=== PATIENT | male | born 1975 | race African-American/Black ===

== ENCOUNTER 2019-04-15 16:04 | Observation (INO) | payer MEDICARE ==
[~2019-04-15] VITALS: Ht 190.5 cm; Wt 108.9 kg
[~2019-04-15 16:04] MED LIST: ASPIRIN EC81 M1 PO; ASPIRIN325 MG PO; BENADRYL INJ50 MG/ML IV; BUPRENEX IV; CELEXA20 MG PO; HEPARIN SOD5000 U/ML IV; HUMALOG 30100 UNITS/ SC; IBUPROFEN200 MG PO; LANTUS INSULIN10 ML SC; LASIX20 MG PO; METOPROLOL TART50 MG PO; NEURONTIN 300300 MG PO; NORVASC5 MG PO; ONDANSETRON4 MG/2 M3 IV; PERCOCET 10/3251 TA1 PO; PLAVIX75 MG PO; PRINIVIL20 MG PO; PROCRIT/EP20000 UNIT SC; XANAX0.25 MG PO; XANAX1 MG PO; ZESTRIL40 MG PO; ZOCOR40 MG PO
[2019-04-15] MEDS ORDERED: COZAAR100 MG PO (16:16)
[2019-04-15] MEDS ORDERED: PROCARDIA XL30 MG PO (16:16)
[2019-04-15] MEDS ORDERED: HYDRALAZINE HC100 MG PO (16:17)
[2019-04-15] MEDS ORDERED: CATAPRES0.1 MG PO (16:18)
[2019-04-15] MEDS ORDERED: TOUJEO SOL300 UNIT/1 (16:20)
[2019-04-15 16:30] VITALS: BP 169/87
--- NOTE | 2019-04-15 17:52 | NUR ---
PATIENT ARRIVED TO UNIT AT THIS TIME VIA GERNERY FROM ED AND ADMITTED TO ROOM 2132. PATIENT IS ALERT/ORIENTED. ABLE TO TRANSFER SELF. AV FISTULA TO LEFT ARM. IV TO RIGHT AC. NO DISTRESS. DENIES CHEST PAIN. RESP EVEN AND UNLABORED.
[2019-04-15 18:32] VITALS: BP 179/88; BMI 28.8
[2019-04-15 20:00] VITALS: BP 172/87
--- NOTE | 2019-04-15 20:22 | NUR ---
RECIEVED UP IN BED WITH EYES OPEN AND TV ON. ALERT AND ORINTED X4. LEFT ARM RESERVED D/T AVF. 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 IV TO RIGHT AC SL.. DENIES ANY NEEDS AT THIS TIME.
[2019-04-16 00:07] VITALS: BP 187/98
[2019-04-16 04:00] VITALS: BP 201/99
--- NOTE | 2019-04-16 05:17 | NUR ---
B/P . PT STATES HE'S BEEN OUT OF HIS B/P MEDICATIONS. CALLED Tani PLEITEZ [facility] UNIT FEEDER WITH NEW ORDER FOR CLONIDINE 0.1. DIESEL TRUCK TECHNICIAN NOTIFIED AND AWAITING MEDICATION.
[2019-04-16 07:51] LABS: BASOPHILS 0.2 % (0-2); EOSINOPHILS 2.6 % (0-7); HEMATOCRIT 29.1 % (42.0-54.0); HEMOGLOBIN 9.6 g/dL (13.5-17.5); IMMATURE GRANULOCYTES 0.1 % (0-5); LYMPHOCYTES 12.2 % (15-50); MCV 90.9 fL (80.0-100.0); MEAN PLATELET VOLUME 11.1 fL (7.4-10.4); MONOCYTES 5.5 % (2-11); NEUTROPHILS 79.4 % (40-80); PLATELET COUNT 277 10x3/uL (130-400); RDW 15.7 % (11.5-14.5); WBC 8.4 10x3/uL (4.8-10.8)
[2019-04-16 08:05] LABS: CALCIUM 10.2 mg/dL (8.5-10.1); CARBON DIOXIDE 24.8 mmol/L (21.0-32.0); CREATININE - SERUM 15.4 mg/dL (0.6-1.3); MAGNESIUM - SERUM 2.3 mg/dL (1.8-2.4); PHOSPHOROUS 6.9 mg/dL (2.5-4.9); POTASSIUM - SERUM 4.8 mmol/L (3.5-5.1)
[2019-04-16 08:27] VITALS: BP 196/96
--- NOTE | 2019-04-16 08:33 | NUR ---
NO SCD'S PATIENT IS LLE AMPUTATION.
[2019-04-16 12:22] VITALS: BP 240/75
[2019-04-16 13:32] VITALS: Ht 190.5 cm; Wt 108.9 kg
--- NOTE | 2019-04-16 14:13 | NUR ---
I have reviewed this patient and I concur with the Shift Assessment completed by the Licensed Practical Nurse today this shift.
[2019-04-16 16:44] VITALS: BP 201/106
--- NOTE | 2019-04-16 20:25 | NUR ---
RECEIVED PATIENT BACK FROM DIALYSIS AND HE REQUESTED TO BE DISCHARGED. I EDUCATED HIM ON THE RISKS, BENEFITS AND ALTERNATIVES TO LEAVING AMA. PATIENT SIGNED FORMS. EDUCATED PATIENT ON MEDICATIONS. DR. EARL WAS PAGED AT 2014, RECEIVED CALLBACK AND INFORMED HIM OF PATIENTS DECISION. PATIENT DISCHARGED.
--- NOTE | 2019-04-18 15:09 | MORECARE ---
CASE MANAGEMENT DISCHARGE SUMMARY PATIENT: SURAJ RODRIGUEZ UNIT: [id number] ADM DATE: 04/15/19 AGE: 44 : 75 SEX: M ROOM/BED: D.2133 AUTHOR: IGLESIADOC PHYSICIAN: REFERRING PHYSICIAN: TRUDY FREEMAN MD DATE OF SERVICE: 04/18/19 Discharge Plan Patient Name: SURAJ RODRIGUEZ Facility: [facility]:[place] : 1975 Planned Disposition: Home Anticipated Discharge Date: 04/18/19 Discharge Date: 04/16/2019 Expected LOS: 3 Initial Reviewer: [email or web address] Initial Review Date: 04/15/2019 Generated: 04/18/19 4:08 pm Patient Name: SURAJ RODRIGUEZ Page [id number] All edits/amendments must be made on the electronic document DICTATION DATE: 04/18/19 1508 EXCELSIOR CUTTER: LEONORA 04/18/19 1508 RPT#: [id number] MT DATE:04/16/19 STATUS: DIS IN [facility] [address] [place] [address] END OF REPORT
--- NOTE | 2019-04-18 15:25 | MORECARE ---
CASE MANAGEMENT DISCHARGE SUMMARY PATIENT: SURAJ RODRIGUEZ UNIT: [id number] ADM DATE: 04/15/19 AGE: 44 : 75 SEX: M ROOM/BED: D.2133 AUTHOR: IGLESIA,DOC PHYSICIAN: REFERRING PHYSICIAN: TRUDY FREEMAN MD DATE OF SERVICE: 04/18/19 Discharge Plan Patient Name: SURAJ RODRIGUEZ Facility: [facility]:[place] : 1975 Planned Disposition: Home Anticipated Discharge Date: 04/18/19 Discharge Date: 04/16/2019 Expected LOS: 3 Initial Reviewer: [email or web address] Initial Review Date: 04/15/2019 Generated: 04/18/19 4:24 pm DCPIA - Discharge Planning Initial Assessment Updated by [email or web address]: Donavon Araya on 04/18/19 3:21 pm * Is the patient Alert and Oriented? Yes * How many steps to enter\exit or inside your home? RAMP * PCP JACINDA CUTLER * Pharmacy [facility] IN [place] * Preadmission Environment Home with Family * ADLs Independent * Equipment None * Other Equipment [facility] - MEDICAL EQUIPMENT PROVIDER PREFERENCE * List name and contact numbers for known caregivers / representatives who currently or will assist patient after discharge: ANNELISE CASTANEDA, [facility], * Verbal permission to speak to the caregivers and representatives has been obtained from the patient. Yes * Community resources currently utilized None * Please name any agencies selected above. NONE * Additional services required to return to the preadmission environment? No * Can the patient safely return to the preadmission environment? Yes * Has this patient been hospitalized within the prior 30 days at any hospital? No Last DP export: 04/18/19 2:09 p Patient Name: SURAJ RODRIGUEZ Page [id number] All edits/amendments must be made on the electronic document DICTATION DATE: 04/18/19 1524 GAS EXAMINER: LEONORA 04/18/19 1524 RPT#: [id number] DC DATE:04/16/19 STATUS: DIS IN [facility] [address] [place] [address] END OF REPORT
--- NOTE | 2019-04-18 15:50 | MORECARE ---
CASE MANAGEMENT DISCHARGE SUMMARY PATIENT: SURAJ RODRIGUEZ UNIT: [id number] ADM DATE: 04/15/19 AGE: 44 : 75 SEX: M ROOM/BED: D.2133 AUTHOR: ASIM PAREKH PHYSICIAN: REFERRING PHYSICIAN: TRUDY FREEMAN MD DATE OF SERVICE: 04/18/19 Discharge Plan Patient Name: SURAJ RODRIGUEZ Facility: [facility]:[place] : 1975 Planned Disposition: Left Against Medical Advice Anticipated Discharge Date: 04/16/19 Discharge Date: 04/16/2019 Expected LOS: 1 Initial Reviewer: [email or web address] Initial Review Date: 04/18/2019 Generated: 04/18/19 4:50 pm Last DP export: 04/18/19 2:25 p Patient Name: SURAJ RODRIGUEZ Page [id number] at 1550 All edits/amendments must be made on the electronic document DICTATION DATE: 04/18/19 1550 BOX ATTACHER: LEONORA 04/18/19 1550 RPT#: [id number] DC DATE:04/16/19 STATUS: DIS IN [facility] [address] [place] [address] END OF REPORT
== END 2019-04-16 20:23 | disposition left against medical advice (07) ==
LOC: D.ER 16:04 → D.M2 17:01 → OBSVTIME 17:01 → D.M2 17:01
PROVIDERS: ADMIT Internal Medicine; ATTEND Internal Medicine
DX: E11.22 Type 2 diabetes mellitus with diabetic chronic kidney disease (principal); I12.0 Hypertensive chronic kidney disease with stage 5 chronic kidney disease or end stage renal disease; N18.6 End stage renal disease; Z99.2 Dependence on renal dialysis; D63.1 Anemia in chronic kidney disease; J81.1 Chronic pulmonary edema; I25.10 Atherosclerotic heart disease of native coronary artery without angina pectoris

== ENCOUNTER 2019-09-30 00:37 | Inpatient (IN) | payer MEDICARE ==
[~2019-09-30] VITALS: Ht 190.5 cm; Wt 97.5 kg
[~2019-09-30 00:37] MED LIST changes: +CATAPRES0.1 MG PO; +COZAAR100 MG PO; +HYDRALAZINE HC100 MG PO; +PROCARDIA XL30 MG PO; +TOUJEO SOL300 UNIT/1
[2019-09-30] MEDS ORDERED: FAMOTIDINE10 MG PO (00:59)
[2019-09-30] MEDS ORDERED: SENSIPAR30 MG (01:00)
[2019-09-30] MEDS ORDERED: DOXYCYCLINE HY100 M2 PO (01:00)
[2019-09-30] MEDS ORDERED: AMBIEN5 MG PO (01:01)
[2019-09-30 01:23] LABS: BASOPHILS 0.5 % (0-2); EOSINOPHILS 3.6 % (0-7); HEMATOCRIT 30.7 % (42.0-54.0); HEMOGLOBIN 9.5 g/dL (13.5-17.5); IMMATURE GRANULOCYTES 0.2 % (0-5); LYMPHOCYTES 10.1 % (15-50); MCH 26.6 pg (26.0-34.0); MCHC 30.9 g/dL (31.0-37.0); MEAN PLATELET VOLUME 10.2 fL (7.4-10.4); MONOCYTES 4.8 % (2-11); NEUTROPHILS 80.8 % (40-80); RBC 3.57 10x6/uL (4.20-6.10); RDW 17.1 % (11.5-14.5); WBC 13.2 10x3/uL (4.8-10.8)
[2019-09-30 01:28] LABS: PLATELET COUNT 492 10x3/uL (130-400)
[2019-09-30 01:32] LABS: APTT 32.4 SECONDS (22.8-39.4); INR 1.29 (0.85-1.17); PROTIME 15.5 SECONDS (11.6-15.0)
[2019-09-30 01:34] LABS: CALC OSMOLALITY 282 mosm/kg (275-300); CALCIUM 9.4 mg/dL (8.5-10.1); CARBON DIOXIDE 25.6 mmol/L (21.0-32.0); CHLORIDE - SERUM 99 mmol/L (98-107); CREATININE - SERUM 8.8 mg/dL (0.6-1.3); GLUCOSE 136 mg/dL (74-106); POTASSIUM - SERUM 3.9 mmol/L (3.5-5.1); SODIUM 137 mmol/L (136-145); UREA NITROGEN 32 mg/dL (7-18); eGFR NON AFRICAN AMERICAN 7 mL/min (90-120)
[2019-09-30 01:56] LABS: ALKALINE PHOSPHATASE 106 U/L (46-116); ALT (SGPT) 34 U/L (10-68); BILIRUBIN - TOTAL 0.71 mg/dL (0.2-1.3); CKMB 1.9 U/L (0.0-3.6); CREATINE KINASE 170 UL (21-232)
[2019-09-30 01:57] LABS: TROPONIN-I 0.062 ng/mL (0.000-0.060)
--- NOTE | 2019-09-30 03:01 | NUR ---
PT ARRIVED TO FLOOR VIA STRETCHER. MOTHER AT BEDSIDE.
[2019-09-30] MEDS ORDERED: PROZAC10 MG PO (03:21)
[2019-09-30 05:20] VITALS: BP 159/74; BMI 26.9
--- NOTE | 2019-09-30 06:06 | NUR ---
PT STATED HE WAS HAVING A PANIC ATTACK AND THAT HE HAS THEM NIGHTLEY
--- NOTE | 2019-09-30 07:49 | NUR ---
PATIENT B/P ELEVATED. APRESOLINE GIVEN PRN ORDERED AT 0600. IT IS ORDERED Q4 HOURS. HE HAS A LOT OF ANXIETY, AND REPORTS THAT THE BLOOD DRAW IS WHAT IS MAKING HIS B/P GO UP. HE WAS VOMITING THIS MORNING AND TREATED WITH ZOFRAN. HE IS UNHAPPY AND WANTS TO ROLL AROUND THE FLOOR BY WHEEL CHAIR. I TOLD THE PATIENT AND HIS PAMILY THAT HE SHOULD STAY IN THE ROOM UNTIL THE MOBILE APPLICATION DEVELOPER ROUNDS. CALLED SHAR MARTINEZ AND SHE IS REVIEWING [facility] MEDICATIONS NOW.
[2019-09-30 07:53] VITALS: BP 203/99
--- NOTE | 2019-09-30 09:55 | NUR ---
PATIENT IS UP ROLLING AROUND IN HIS WHEEL CHAIR. HIS MOTHER IS PUSHING HIM AROUND. HE SAID THAT HE HAD ANXIETY. HE STATES THAT IS FEELS BETTER WHEN HE IS OUT OF THE ROOM.
[2019-09-30 11:28] VITALS: BP 183/87
[2019-09-30 15:32] VITALS: BP 199/102
--- NOTE | 2019-09-30 18:23 | NUR ---
HIGH B/P TREATED AGAIN WITH PRN B/P MEDS. CALLED SHAR MARTINEZ AND REPORTED PATIENT ANXIETY. SHE ACKNOWLEDGED AND ADDITIONAL MEDICATION ORDERED FOR ANXIETY. CALLED EVENING ANCHOR TO PULL IT BECAUSE IT IS AFTER PHARMACY CLOSED. PATIENT IS SITTING UP IN BED AND WAITING FOR THE ANTIBIOTICS TO FINISH, THEN HE SAYS THAT HE WANTS TO RIDE AROUND THE FLOOR IN HIS WHEEL CHAIR AGAIN. MOTHER AT BEDSIDE.
--- NOTE | 2019-09-30 19:00 | NUR ---
REPORT RECEIVED. PT UP AMBULATING IN GUY, RR EVEN AND UNLABORED. MOTHER PRESENT. NO S/SX OF DISTRESS OBSERVED AT THIS TIME. WILL CTM.
[2019-09-30 20:30] VITALS: BP 184/95
[2019-10-01 00:45] VITALS: BP 176/90
[2019-10-01 04:25] VITALS: BP 183/92
[2019-10-01 05:05] LABS: BASOPHILS 0.4 % (0-2); EOSINOPHILS 5.1 % (0-7); HEMATOCRIT 26.7 % (42.0-54.0); HEMOGLOBIN 8.3 g/dL (13.5-17.5); IMMATURE GRANULOCYTES 0.3 % (0-5); LYMPHOCYTES 11.4 % (15-50); MCH 26.5 pg (26.0-34.0); MCHC 31.1 g/dL (31.0-37.0); MCV 85.3 fL (80.0-100.0); MEAN PLATELET VOLUME 10.4 fL (7.4-10.4); NEUTROPHILS 77.8 % (40-80); PLATELET COUNT 421 10x3/uL (130-400); RBC 3.13 10x6/uL (4.20-6.10); RDW 17.5 % (11.5-14.5)
[2019-10-01 05:16] LABS: WBC 9.1 10x3/uL (4.8-10.8)
[2019-10-01 05:39] LABS: ANION GAP 13.8 mmol/L (8-16); CALCIUM 9.2 mg/dL (8.5-10.1); CARBON DIOXIDE 27.1 mmol/L (21.0-32.0); MAGNESIUM - SERUM 2.5 mg/dL (1.8-2.4); PHOSPHOROUS 5.3 mg/dL (2.5-4.9); POTASSIUM - SERUM 3.9 mmol/L (3.5-5.1)
[2019-10-01 06:03] LABS: CREATININE - SERUM 11.5 mg/dL (0.6-1.3); TROPONIN-I 0.066 ng/mL (0.000-0.060)
--- NOTE | 2019-10-01 09:59 | NUR ---
PT LEFT FOR DIALYSIS VIA WHEELCHAIR.
[2019-10-01 13:23] VITALS: Ht 190.5 cm; Wt 97.5 kg
--- NOTE | 2019-10-01 15:54 | NUR ---
PT ASSISTED TO SHOWER.
--- NOTE | 2019-10-01 17:46 | NUR ---
I have reviewed this patient and I concur with the Shift Assessment completed by the Licensed Practical Nurse today this shift.
--- NOTE | 2019-10-01 19:16 | NUR ---
AWAKE AND ALERT AND DENIES NEDS AT THIS TIME BED IS LOW AND LOCKED LCTA VISITOR IS WITH PT
[2019-10-01 20:30] VITALS: BP 185/91
[2019-10-02 00:25] VITALS: BP 154/70
[2019-10-02 04:27] VITALS: BP 159/77
--- NOTE | 2019-10-02 05:44 | NUR ---
IV INFILTRATED REMOVED CATH INTACT
--- NOTE | 2019-10-02 06:00 | NUR ---
ATTEMPTED X2 TO GET IV WITH NO SUCESS
--- NOTE | 2019-10-02 07:10 | NUR ---
REPORT RECEIVED AND PATIENT CARE ASSUMED. PATIENT LAHYING IN BED AWAKE, ALERT ORIENTED X 4. PATIENT IS STABLE AND VSS. PATIENT DENIES ANY NEEDES OR PAIN. WILL CONTINUE TO MONTIOR. AT BS. SR UP X 2 BED IN LOW POSITION AND CALL LIGHT IN REACH.
[2019-10-02 07:35] LABS: TROPONIN-I 0.069 ng/mL (0.000-0.060); VANCOMYCIN - RANDOM 18.4 ug/mL (10.0-20.0)
--- NOTE | 2019-10-02 09:45 | NUR ---
PATIENT IS STABLE AND VSS. PATIENT TO DIALYSIS VIA WC AND ACCOMPANIED BY HOSPITAL STAFF.
[2019-10-02 11:01] VITALS: BP 201/97
--- NOTE | 2019-10-02 12:30 | NUR ---
PATIENT RETURNED FROM DIALYSIS. PATIENT IS STABLE AND VSS. PIV INFILLTRATED. WILL RE-SITE.
--- NOTE | 2019-10-02 12:35 | NUR ---
I CALLED LUPIS CHANEL, ISOLATION WASHER NURSE FOR GERALDO MINER, RN PRIMARY NURSE FOR A PIV. STATES THAT SHE WILL PLACE ONE.
--- NOTE | 2019-10-02 19:14 | NUR ---
AWAKE AND ALERT UP IN WHEL CHAIR IV INFUSING NOW PT DENIES OTHER NEEDS BED IS LOW AND LOCKED
[2019-10-02 20:00] VITALS: BP 171/90
[2019-10-03 00:40] VITALS: BP 128/68
--- NOTE | 2019-10-03 02:36 | NUR ---
I have reviewed this patient and I concur with the Shift Assessment completed by the Licensed Practical Nurse today this shift.
[2019-10-03 05:43] VITALS: BP 165/79
[2019-10-03 06:43] LABS: TROPONIN-I 0.059 ng/mL (0.000-0.060); VANCOMYCIN - RANDOM 14.9 ug/mL (10.0-20.0)
[2019-10-03 07:54] VITALS: BP 182/100
--- NOTE | 2019-10-03 14:27 | NUR ---
PT ON RA AND SP02 WAS 87%. RESTING SP02 ON 4L/NC 95%
[2019-10-03 14:57] VITALS: BP 192/94
--- NOTE | 2019-10-03 16:25 | MORECARE ---
CASE MANAGEMENT DISCHARGE SUMMARY PATIENT: SURAJ RODRIGUEZ UNIT: [id number] ADM DATE: 09/30/19 AGE: 44 : 75 SEX: M ROOM/BED: D.2103 AUTHOR: ASIM PARKEH PHYSICIAN: REFERRING PHYSICIAN: MIROSLAVA MONTANA DO DATE OF SERVICE: 10/03/19 Discharge Plan Patient Name: SURAJ RODRIGUEZ Facility: [facility]:[place] : 1975 Planned Disposition: Home Anticipated Discharge Date: 10/04/19 Discharge Date: Expected LOS: 4 Initial Reviewer: [email or web address] Initial Review Date: 10/03/2019 Generated: 10/03/19 5:24 pm DCPIA - Discharge Planning Initial Assessment Updated by [email or web address]: Donavon Araya on 10/03/19 4:23 pm * Is the patient Alert and Oriented? Yes * How many steps to enter\exit or inside your home? NONE * PCP DR FAGAN IN [place] * Pharmacy [facility] IN [place] * Preadmission Environment Home with Family * ADLs Independent * Equipment Wheelchair * Other Equipment LEFT BELOW KNEE PROSTESIS * List name and contact numbers for known caregivers / representatives who currently or will assist patient after discharge: BREEZY STRAUSS, MOTHER, * Verbal permission to speak to the caregivers and representatives has been obtained from the patient. N/A * Community resources currently utilized Other * Please name any agencies selected above. [facility], [place], MWF, 1030, DRIVES SELF * Additional services required to return to the preadmission environment? Yes * Can the patient safely return to the preadmission environment? Yes * Has this patient been hospitalized within the prior 30 days at any hospital? No Patient Name: SURAJ RODRIGUEZ Page [id number] at 1625 All edits/amendments must be made on the electronic document DICTATION DATE: 10/03/191623 MONUMENT STONECUTTER: LEONORA 10/03/191623 RPT#: [id number] DC DATE: STATUS: ADM IN [facility] [address] [place] [address] END OF REPORT
[2019-10-03 16:26] LABS: APPEARANCE CLEAR (CLEAR); BILIRUBIN NEGATIVE (NEGATIVE); COLOR YELLOW (YELLOW); GLUCOSE NEGATIVE (NEGATIVE); KETONE NEGATIVE (NEGATIVE); NITRITE NEGATIVE (NEGATIVE); PROTEIN 1+ mg/dL (NEGATIVE); UROBILINOGEN NORMAL (NORMAL)
--- NOTE | 2019-10-03 16:48 | MORECARE ---
CASE MANAGEMENT DISCHARGE SUMMARY PATIENT: SURAJ RODRIGUEZ UNIT: [id number] ADM DATE: 09/30/19 AGE: 44 : 75 SEX: M ROOM/BED: D.4313 AUTHOR: IGLESIA,DOC PHYSICIAN: REFERRING PHYSICIAN: MIROSLAVA MONTANA DO DATE OF SERVICE: 10/03/19 Discharge Plan Patient Name: SURAJ RODRIGUEZ Facility: [facility]:[place] : 1975 Planned Disposition: Home Anticipated Discharge Date: 10/04/19 Discharge Date: Expected LOS: 4 Initial Reviewer: [email or web address] Initial Review Date: 10/03/2019 Generated: 10/03/19 5:47 pm Comments DCP- Discharge Planning Updated by [id number]: Donavon Araya on 10/03/19 3:[address] Patient Name: SURAJ RODRIGUEZ Admission Status: ER Accout number: [id number] Admission Date: 09-30-2019 : 1975 Admission Diagnosis: Attending: MONICA Current LOS: 3 Anticipated DC Date: 10-04-2019 Planned Disposition: Home Primary Insurance: MEDICARE A & B Discharge Planning Comments: CM RECEIVED OXYGEN TESTING ORDER AND OXYGEN TESTING OF 87% ON ROOM AIR. CM MET WITH PT IN ROOM TO DISCUSS DISCHARGE PLANNING AND NEEDS. PT REPORTS LIVING AT HOME INDEPENDENTLY WITH HIS MOTHER. PT HAS WHEELCHAIR AND LEFT BELOW KNEE PROSTESIS; PT'S PREFERRED MEDICAL EQUIPMENT PROVIDER IS [employer] [facility]. PT HAS NO OUTSIDE SERVICES ASSISTING IN THE HOME. PT DRIVES SELF TO DIALYSIS IN [facility] AT 1030AM. CM DISCUSSED AVAILABILITY OF HOME HEALTH, REHAB SERVICES AND MEDICAL EQUIPMENT. PT DENIES DISCHARGE NEEDS OTHER THAN OXYGEN. CM REVIEWED CHART, EXPLAINED TO PT HE DOES NOT HAVE QUALIFYING DIAGNOSIS FOR OXYGEN AND MAY HAVE TO PAY PRIVATELY. PT REPORTS UNDERSTANDING. CHOICE SIGNED FOR [employer]. PT REPORTS FAMILY WILL PICK HIM UP FOR DISCHARGE HOME. IMPORTANT MESSAGE FROM MEDICARE PROVIDED AND EXPLAINED. CM CALLED [employer], , SPOKE TO OLIVERIO WHO REPORTS THEY DO NOT DO PRIVATE PAY OXYGEN. OLIVERIO SUGGESTED CM CALL [facility]. CM CALLED [facility], , SPOKE TO DAVID WHO INFORMED CM THAT THEY DO PRIVATE PAY OXYGEN BUT MAY BE ABLE TO GET INSURANCE APPROVAL AND WANTS TO REVIEW CHART. CM SPOKE TO PT IN ROOM WHO CONSENTED TO REFERRAL TO [facility]. CM FAXED REFERRAL TO DAVID AT [phone]. CM WAITING [facility] TO COMPLETE REVIEW AND IF POSSIBLE, BILL MEDICARE FOR OXYGEN AND IF NOT, WORK OUT PRIVATE PAY ARRANGEMENT FOR HOME AND PORTABLE OXGYEN WITH PT. Greaser Operator: Donavon Araya DCPIA - Discharge Planning Initial Assessment Updated by [email or web address]: Donavon Araya on 10/03/19 4:23 pm * Is the patient Alert and Oriented? Yes * How many steps to enter\exit or inside your home? NONE * PCP DR FAGAN IN [place] * Pharmacy [facility] IN [place] * Preadmission Environment Home with Family * ADLs Independent * Equipment Wheelchair * Other Equipment LEFT BELOW KNEE PROSTESIS * List name and contact numbers for known caregivers / representatives who currently or will assist patient after discharge: BREEZY STRAUSS, MOTHER, * Verbal permission to speak to the caregivers and representatives has been obtained from the patient. N/A * Community resources currently utilized Other * Please name any agencies selected above. OUTPATIENT DIALYSIS, [place], MWF, 1030, DRIVES SELF * Additional services required to return to the preadmission environment? Yes * Can the patient safely return to the preadmission environment? Yes * Has this patient been hospitalized within the prior 30 days at any hospital? No External Providers External Provider: [facility] Next Contact Date: 10/03/2019 Service Request Date: Service Type: Resolution: Reviewer: Comments: Last DP export: 10/03/19 3:25 pm Patient Name: SURAJ RODRIGUEZ Page [id number] at 1648 All edits/amendments must be made on the electronic document DICTATION DATE: 10/03/191646 SENIOR PROGRAM PLANNER: LEONORA 10/03/191646 RPT#: [id number] DC DATE: STATUS: ADM IN [facility] [address] [place] [address] END OF REPORT
[2019-10-03 20:00] VITALS: BP 171/80
--- NOTE | 2019-10-03 22:00 | NUR ---
REPORT RECIEVED AND ROUNDING COMPLETE. PATIENT SITTING IN BED, PATIENT ASKED ABOUT A SANDWICH, ANNELISE, MINERAL TECHNOLOGIST BROUGHT IN A SANDWICH. PATIENT SHOWS NO S/SX OF DISTRESS AT THIS TIME. CALL LIGHT WITH IN REACH AND BED IN LOWEST LOCKED POSITION. PAITENT STATES HE HAS NO OTHER NEEDS AT THIS TIME.
[2019-10-03 23:30] VITALS: BP 195/94
[2019-10-04 04:00] VITALS: BP 190/91
--- NOTE | 2019-10-04 07:16 | NUR ---
REPORT RECEIVED FROM LOUVER MORTISER OPERATOR AND PATIENT SHANTELL ASSUMED. PATIENT LAYING IN BED ON BACK WITH EYES CLOSED AND BREATHING EVENLY. WILL CONTINUE WITH PLAN OF CARE. SR UP X 2 BED IN LOW POSITION AND CALL LIGHT IN REACH.
[2019-10-04 07:43] LABS: TROPONIN-I 0.048 ng/mL (0.000-0.060); VANCOMYCIN - RANDOM 16.1 ug/mL (10.0-20.0)
[2019-10-04] MEDS ORDERED: ROBITUSSIN AC (WITH PO (08:11)
[2019-10-04] MEDS ORDERED: AMOX TR-K CLV 21 TAB PO (08:20)
[2019-10-04 08:27] VITALS: BP 185/78
--- NOTE | 2019-10-04 08:40 | NUR ---
PATIENT REPORTS NO FLU SHOT UPON ADMIT, REFUSED ONE FOR DISCHARGE.
--- NOTE | 2019-10-04 09:43 | NUR ---
Nutrition Follow-up: Pt reports appetite improving. Ate ~75% of breakfast this AM. Diet: Renal ADA Wt: 215# (10/01) Last BM: [employer] [facility] Labs reviewed Meds noted: Renagel -Continue current diet as tolerated. -Need new wt; noted daily wts ordered. -RD following.
[2019-10-04 11:11] VITALS: BP 177/91
--- NOTE | 2019-10-04 11:46 | NUR ---
PATIENT IS STABLE AND VSS. ORDERS RECEIVED FOR DC. WRITTEN AND VERBAL INSTRUCTIONS GIVEN. PATIENT VERBAIZED UNDERSTANDING AND SIGNED DC ORDERS. PATIENT IS NOW AWAINTING TRANSPORTATION FROM [place].
--- NOTE | 2019-10-04 12:13 | MORECARE ---
CASE MANAGEMENT DISCHARGE SUMMARY PATIENT: SURAJ RODRIGUEZ UNIT: [id number] ADM DATE: 09/30/19 AGE: 44 : 75 SEX: M ROOM/BED: D.2103 AUTHOR: IGLESIA,DOC PHYSICIAN: REFERRING PHYSICIAN: MIROSLAVA MONTANA DO DATE OF SERVICE: 10/04/19 Discharge Plan Patient Name: SURAJ RODRIGUEZ Facility: [facility]:[place] : 1975 Planned Disposition: Home Anticipated Discharge Date: 10/04/19 Discharge Date: Expected LOS: 4 Initial Reviewer: [email or web address] Initial Review Date: 10/03/2019 Generated: 10/04/19 1:13 pm Comments DCP- Discharge Planning Updated by [email or web address]: Donavon Araya on 10/04/19 11:[address] Patient Name: SURAJ RODRIGUEZ Encounter No: [id number] : 1975 Primary Insurance: MEDICARE A & B Anticipated DC Date: 10-04-2019 Planned Disposition: Home DCP follow-up note: CM CALLED [facility], , SPOKE TO DAVID WHO INFORMED CM THAT SHE RECEIVED INSURANCE APPROVAL AND OXYGEN IS ON THE WAY TO PT'S ROOM. CM SPOKE TO PT IN ROOM WHO IS IN AGREEMENT WITH DISCHARGE HOME TODAY, FAMILY WILL ASSURANCE SERVICES MANAGER HEALTH CARE. VERTICAL MILL OPERATOR NURSE NOTIFIED. [facility]IVER[facility] PORTABLE OXYGEN TO PT'S ROOM AND WILL ARRANGE HOME DELIVERY OF OXGYEN WITH PT AFTER HE ARRIVES HOME TODAY. Media/Instructional Designer: Donavon Araya DCP- Discharge Planning Updated by [email or web address]: Donavon Araya on 10/03/19 3:[address] Patient Name: SURAJ RODRIGUEZ Admission Status: ER Accout number: [id number] Admission Date: 09-30-2019 : 1975 Admission Diagnosis: Attending: MONICA Current LOS: 3 Anticipated DC Date: 10-04-2019 Planned Disposition: Home Primary Insurance: MEDICARE A & B Discharge Planning Comments: CM RECEIVED OXYGEN TESTING ORDER AND OXYGEN TESTING OF 87% ON ROOM AIR. CM MET WITH PT IN ROOM TO DISCUSS DISCHARGE PLANNING AND NEEDS. PT REPORTS LIVING AT HOME INDEPENDENTLY WITH HIS MOTHER. PT HAS WHEELCHAIR AND LEFT BELOW KNEE PROSTESIS; PT'S PREFERRED MEDICAL EQUIPMENT PROVIDER IS [employer]. PT HAS NO OUTSIDE SERVICES ASSISTING IN THE HOME. PT DRIVES SELF TO DIALYSIS IN [facility] AT 1030AM. CM DISCUSSED AVAILABILITY OF HOME HEALTH, REHAB SERVICES AND MEDICAL EQUIPMENT. PT DENIES DISCHARGE NEEDS OTHER THAN OXYGEN. CM REVIEWED CHART, EXPLAINED TO PT HE DOES NOT HAVE QUALIFYING DIAGNOSIS FOR OXYGEN AND MAY HAVE TO PAY PRIVATELY. PT REPORTS UNDERSTANDING. CHOICE SIGNED FOR [employer]. PT REPORTS FAMILY WILL PICK HIM UP FOR DISCHARGE HOME. IMPORTANT MESSAGE FROM MEDICARE PROVIDED AND EXPLAINED. CM CALLED [employer], , SPOKE TO OLIVERIO WHO REPORTS THEY DO NOT DO PRIVATE PAY OXYGEN. OLIVERIO SUGGESTED CM CALL [facility]. CM CALLED [facility], , SPOKE TO DAVID WHO INFORMED CM THAT THEY DO PRIVATE PAY OXYGEN BUT MAY BE ABLE TO GET INSURANCE APPROVAL AND WANTS TO REVIEW CHART. CM SPOKE TO PT IN ROOM WHO CONSENTED TO REFERRAL TO [facility]. CM FAXED REFERRAL TO DAVID AT [phone]. CM WAITING [facility] TO COMPLETE REVIEW AND IF POSSIBLE, BILL MEDICARE FOR OXYGEN AND IF NOT, WORK OUT PRIVATE PAY ARRANGEMENT FOR HOME AND PORTABLE OXGYEN WITH PT. Media/Instructional Designer: Donavon Araya DCPIA - Discharge Planning Initial Assessment Updated by [email or web address]: Donavon Araya on 10/03/19 4:23 pm * Is the patient Alert and Oriented? Yes * How many steps to enter\exit or inside your home? NONE * PCP DR FAGAN IN [place] * Pharmacy [facility] IN [place] * Preadmission Environment Home with Family * ADLs Independent * Equipment Wheelchair * Other Equipment LEFT BELOW KNEE PROSTESIS * List name and contact numbers for known caregivers / representatives who currently or will assist patient after discharge: BREEZY STRAUSS, MOTHER, * Verbal permission to speak to the caregivers and representatives has been obtained from the patient. N/A * Community resources currently utilized Other * Please name any agencies selected above. OUTPATIENT DIALYSIS, [facility], [facility], 1030, DRIVES SELF * Additional services required to return to the preadmission environment? Yes * Can the patient safely return to the preadmission environment? Yes * Has this patient been hospitalized within the prior 30 days at any hospital? No Coverage Notice Reviewer: [email or web address] Suhas Araya Notice Issued Date-Time: 10/03/2019 15:00 Notice Type: Patient Choice Letter Notice Delivered To: Patient Relationship to Patient: Security Compliance Engineer Name: Delivery Method: HAND - Hand Delivered Chandrika Days: Prior Verbal Notification: Recipient Understood Notice: Yes Recipient Signature: Yes Med Rec Note Co-signed by Attending: Coverage Notice Comment: [employer] Reviewer: [email or web address] Suhas Araya Notice Issued Date-Time: 10/03/2019 15:00 Notice Type: IM Discharge Notice Notice Delivered To: Patient Relationship to Patient: Security Compliance Engineer Name: Delivery Method: HAND - Hand Delivered Chandrika Days: Prior Verbal Notification: Recipient Understood Notice: Yes Recipient Signature: Yes Med Rec Note Co-signed by Attending: Coverage Notice Comment: Last DP export: 10/03/19 3:48 pm Patient Name: SURAJ RODRIGUEZ Page [id number] at 1213 All edits/amendments must be made on the electronic document DICTATION DATE: 10/04/19 1213 CALL CENTER OPERATOR: LEONORA 10/04/19 1213 RPT#: [id number] DC DATE: STATUS: ADM IN [facility] [address] [place] [address] END OF REPORT
--- NOTE | 2019-10-04 13:32 | NUR ---
PATIENT IS STABLE AND VSS. IV DECD WITHOUT DIFFICULTY WITH ENTIRE CATHETER INTACT. PRESSURE DRSG APPLIED. PATIENT TO FRONT DOOR VIA WC ACCOMPANIED BY FAMILY AND HOSPITAL STAFF TO PRIVATE VEHICLE DRIVEN BY FAMILY MEMBER. PATIENT IS DC HOME FOR SELF CARE.
== END 2019-10-04 13:34 | disposition home or self-care (01) | DRG 193 ==
LOC: D.ER 00:37 → D.M2 02:27
PROVIDERS: Family Medicine; ADMIT Internal Medicine; ATTEND Internal Medicine
PROC: 5A1D70Z Performance of Urinary Filtration, Intermittent, Less than 6 Hours Per Day (ICD-10-PCS; principal; 2019-09-30)
PROC: 5A1D70Z Performance of Urinary Filtration, Intermittent, Less than 6 Hours Per Day (ICD-10-PCS; 2019-09-30)
DX: J18.9 Pneumonia, unspecified organism (principal); N18.6 End stage renal disease; J96.01 Acute respiratory failure with hypoxia; I12.0 Hypertensive chronic kidney disease with stage 5 chronic kidney disease or end stage renal disease; E11.22 Type 2 diabetes mellitus with diabetic chronic kidney disease; Z99.2 Dependence on renal dialysis; D63.1 Anemia in chronic kidney disease

== ENCOUNTER 2019-10-07 15:35 | Inpatient (IN) | payer MEDICARE ==
[~2019-10-07] VITALS: Ht 190.5 cm; Wt 97.5 kg
[~2019-10-07 15:35] MED LIST changes: +AMBIEN5 MG PO; +AMOX TR-K CLV 21 TAB PO; +DOXYCYCLINE HY100 M2 PO; +FAMOTIDINE10 MG PO; +PROZAC10 MG PO; +ROBITUSSIN AC (WITH PO; +SENSIPAR30 MG
[2019-10-07 15:52] VITALS: BP 257/135
[2019-10-07 16:00] VITALS: BP 159/56; BP 213/114
[2019-10-07 16:30] LABS: BASOPHILS 0.2 % (0-2); EOSINOPHILS 5.3 % (0-7); HEMATOCRIT 26.5 % (42.0-54.0); HEMOGLOBIN 8.5 g/dL (13.5-17.5); IMMATURE GRANULOCYTES 0.1 % (0-5); MCH 27.3 pg (26.0-34.0); MCHC 32.1 g/dL (31.0-37.0); MCV 85.2 fL (80.0-100.0); MEAN PLATELET VOLUME 10.3 fL (7.4-10.4); MONOCYTES 5.3 % (2-11); NEUTROPHILS 77.1 % (40-80); PLATELET COUNT 418 10x3/uL (130-400); RBC 3.11 10x6/uL (4.20-6.10); RDW 18.3 % (11.5-14.5); WBC 10.1 10x3/uL (4.8-10.8)
[2019-10-07 16:44] LABS: CALC OSMOLALITY 287 mosm/kg (275-300); CALCIUM 9.6 mg/dL (8.5-10.1); CARBON DIOXIDE 29.4 mmol/L (21.0-32.0); CHLORIDE - SERUM 100 mmol/L (98-107); CREATININE - SERUM 12.1 mg/dL (0.6-1.3); POTASSIUM - SERUM 4.2 mmol/L (3.5-5.1); SODIUM 138 mmol/L (136-145); UREA NITROGEN 45 mg/dL (7-18); eGFR NON AFRICAN AMERICAN 5 mL/min (90-120)
[2019-10-07 16:50] LABS: ALBUMIN 2.7 g/dL (3.4-5.0); ALKALINE PHOSPHATASE 78 U/L (46-116); ALT (SGPT) 25 U/L (10-68); BILIRUBIN - TOTAL 0.67 mg/dL (0.2-1.3); MAGNESIUM - SERUM 2.6 mg/dL (1.8-2.4); PROTEIN - SERUM 8.9 g/dL (6.4-8.2)
[2019-10-07 16:51] LABS: GLUCOSE 94 mg/dL (74-106)
[2019-10-07 17:00] VITALS: BP 204/105
[2019-10-07 17:10] LABS: KETONE - SERUM NEGATIVE (NEGATIVE)
[2019-10-07 17:37] LABS: INR 1.23 (0.85-1.17); PROTIME 15.4 SECONDS (11.6-15.0)
[2019-10-07 18:02] VITALS: BP 147/64
[2019-10-07 18:30] VITALS: BP 142/78
[2019-10-07] MEDS ORDERED: FUROSEMIDE20 MG PO (19:37)
[2019-10-07] MEDS ORDERED: HYDROCODON-ACE1 EAC2 PO (19:38)
[2019-10-07] MEDS ORDERED: ZOCOR40 MG PO (19:39)
[2019-10-07] MEDS ORDERED: XANAX1 MG PO (19:39)
--- NOTE | 2019-10-07 19:50 | NUR ---
ADMITTED BY WC FROM ER TO 2102 AND EFFORTS MADE FOR COMFORT AND O2 APPLIEDBED LOW AND LOCKED CALL LIGHT GIVEN TO PT
[2019-10-07 22:25] VITALS: BP 168/84; BMI 26.9
[2019-10-08 00:20] VITALS: BP 161/78
[2019-10-08 04:30] VITALS: BP 164/85
[2019-10-08 05:29] LABS: BASOPHILS 0.4 % (0-2); EOSINOPHILS 6.2 % (0-7); HEMATOCRIT 24.8 % (42.0-54.0); HEMOGLOBIN 7.9 g/dL (13.5-17.5); IMMATURE GRANULOCYTES 0.1 % (0-5); LYMPHOCYTES 12.7 % (15-50); MCH 26.9 pg (26.0-34.0); MCHC 31.9 g/dL (31.0-37.0); MCV 84.4 fL (80.0-100.0); MEAN PLATELET VOLUME 10.1 fL (7.4-10.4); NEUTROPHILS 74.6 % (40-80); PLATELET COUNT 388 10x3/uL (130-400); RBC 2.94 10x6/uL (4.20-6.10); RDW 18.7 % (11.5-14.5); WBC 8.5 10x3/uL (4.8-10.8)
[2019-10-08 05:44] LABS: ANION GAP 12.7 mmol/L (8-16); CALCIUM 9.1 mg/dL (8.5-10.1); CARBON DIOXIDE 29.2 mmol/L (21.0-32.0); CREATININE - SERUM 13.3 mg/dL (0.6-1.3); MAGNESIUM - SERUM 2.5 mg/dL (1.8-2.4); POTASSIUM - SERUM 3.9 mmol/L (3.5-5.1)
[2019-10-08 08:09] VITALS: BP 196/103
[2019-10-08 11:32] VITALS: BP 218/106
[2019-10-08 13:52] VITALS: BMI 26.8
[2019-10-08 18:33] VITALS: Ht 190.5 cm; Wt 97.5 kg
[2019-10-08 18:45] LABS: % SATURATION 20 % (15-55); IRON 30 ug/dl (35-150); TOTAL IRON BIND CAPACITY 144 ug/dl (260-445); UNSAT IRON BIND CAPACITY 114 ug/dl (150-375)
[2019-10-08 20:00] VITALS: BP 178/85
[2019-10-09] VITALS: BP 146/71
--- NOTE | 2019-10-09 02:18 | NUR ---
I have reviewed this patient and I concur with the Shift Assessment completed by the Licensed Practical Nurse today this shift.
[2019-10-09 04:00] VITALS: BP 154/72
[2019-10-09 06:14] LABS: BASOPHILS 0.4 % (0-2); EOSINOPHILS 7.2 % (0-7); HEMATOCRIT 22.6 % (42.0-54.0); IMMATURE GRANULOCYTES 0.2 % (0-5); LYMPHOCYTES 13.2 % (15-50); MCH 26.9 pg (26.0-34.0); MCHC 31.9 g/dL (31.0-37.0); MCV 84.3 fL (80.0-100.0); MEAN PLATELET VOLUME 10.4 fL (7.4-10.4); MONOCYTES 7.8 % (2-11); NEUTROPHILS 71.2 % (40-80); PLATELET COUNT 408 10x3/uL (130-400); RBC 2.68 10x6/uL (4.20-6.10); RDW 18.7 % (11.5-14.5); WBC 8.2 10x3/uL (4.8-10.8)
[2019-10-09 06:44] LABS: ANION GAP 10.6 mmol/L (8-16); CALCIUM 8.9 mg/dL (8.5-10.1); CARBON DIOXIDE 31.5 mmol/L (21.0-32.0); CREATININE - SERUM 10.9 mg/dL (0.6-1.3); POTASSIUM - SERUM 4.1 mmol/L (3.5-5.1)
[2019-10-09 06:48] LABS: HEMOGLOBIN 7.2 g/dL (13.5-17.5)
--- NOTE | 2019-10-09 07:20 | NUR ---
RECIEVE REPORT. RESTING IN BED WITH EYES CLOSED. FAMILY AT BEDSIDE. NO SIGNS OF DISTRESS. CONTINUE PLAN OF CARE AND SAFETY PRECAUTIONS.
[2019-10-09 07:58] VITALS: BP 187/97
[2019-10-09 11:37] VITALS: BP 176/89
--- NOTE | 2019-10-09 14:43 | NUR ---
PATIENT REFUSED THE GASTRIC EMPTYING SCAN. EXAM IS CANCELLED. PLEASE REORDER IF PATIENT AGREES.
--- NOTE | 2019-10-09 15:30 | NUR ---
RETURN TO ROOM VIA WHEELCHAIR. FROM [facility]. REFUSE GASTRIC EMPTY SCAN ONCE ARRIVING TO ROOM. ARMANDO, WITH [facility] NOTIFY PHYSICIAN. REQUESTING FOOD. CONTINUE PLAN OF CARE AND SAFETY PRECAUTIONS.
[2019-10-09 15:42] VITALS: BP 146/82
--- NOTE | 2019-10-09 16:22 | MORECARE ---
CASE MANAGEMENT DISCHARGE SUMMARY PATIENT: SURAJ RODRIGUEZ UNIT: [id number] ADM DATE: 10/07/19 AGE: 44 : 75 SEX: M ROOM/BED: D.2103 AUTHOR: ASIM PAREKH PHYSICIAN: REFERRING PHYSICIAN: SERG KEN MD DATE OF SERVICE: 10/09/19 Discharge Plan Patient Name: SURAJ RODRIGUEZ Facility: [facility]:[place] : 1975 Planned Disposition: Home Anticipated Discharge Date: 10/10/19 Discharge Date: Expected LOS: 3 Initial Reviewer: [email or web address] Initial Review Date: 10/09/2019 Generated: 10/09/19 5:21 pm DCPIA - Discharge Planning Initial Assessment Updated by [id number]: Donavon Araya on 10/09/19 4:19 pm * Is the patient Alert and Oriented? Yes * How many steps to enter\exit or inside your home? NONE * PCP DR. FAGAN IN [place] * Pharmacy [facility] IN [place] * Preadmission Environment Home with Family * ADLs Independent * Equipment Other Oxygen Wheelchair * Other Equipment LEFT BELOW KNEE PROSTHESIS HOME AND PORTABLE OXGYEN, [facility] * List name and contact numbers for known caregivers / representatives who currently or will assist patient after discharge: BREEZY STRAUSS, MOTHER, * Verbal permission to speak to the caregivers and representatives has been obtained from the patient. Yes * Community resources currently utilized Other * Please name any agencies selected above. [facility], [place], MWF, 1030, DRIVES SELF * Additional services required to return to the preadmission environment? No * Can the patient safely return to the preadmission environment? Yes * Has this patient been hospitalized within the prior 30 days at any hospital? Yes Coverage Notice Reviewer: [id number] - Donavon Araya Notice Issued Date-Time: 10/09/2019 12:55 Notice Type: IM Discharge Notice Notice Delivered To: Patient Relationship to Patient: Machined Parts Metal Sprayer Name: Delivery Method: HAND - Hand Delivered Chandrika Days: Prior Verbal Notification: Recipient Understood Notice: Yes Recipient Signature: Yes Med Rec Note Co-signed by Attending: Coverage Notice Comment: Patient Name: SURAJ RODRIGUEZ Page [id number] at 1622 All edits/amendments must be made on the electronic document DICTATION DATE: 10/09/191620 BANKING PIN ADJUSTER: LEONORA 10/09/191620 RPT#: [id number] DC DATE: STATUS: ADM IN [facility] [address] [place] [address] END OF REPORT
--- NOTE | 2019-10-09 16:35 | MORECARE ---
CASE MANAGEMENT DISCHARGE SUMMARY PATIENT: SURAJ RODRIGUEZ UNIT: [id number] ADM DATE: 10/07/19 AGE: 44 : 75 SEX: M ROOM/BED: D.2103 AUTHOR: IGLESIADOC PHYSICIAN: REFERRING PHYSICIAN: SERG KEN MD DATE OF SERVICE: 10/09/19 Discharge Plan Patient Name: SURAJ RODRIGUEZ Facility: [facility]:[place] : 1975 Planned Disposition: Home Anticipated Discharge Date: 10/10/19 Discharge Date: Expected LOS: 3 Initial Reviewer: [id number] Initial Review Date: 10/09/2019 Generated: 10/09/19 5:34 pm Comments DCP- Discharge Planning Updated by [id number]: Donavon Araya on 10/09/19 3:[address] Patient Name: SURAJ RODRIGUEZ Admission Status: ER Accout number: [id number] Admission Date: 10-07-2019 : 1975 Admission Diagnosis: Attending: ALEN Current LOS: 2 Anticipated DC Date: 10-10-2019 Planned Disposition: Home Primary Insurance: MEDICARE A & B Discharge Planning Comments: CM MET WITH PT AND MOTHER IN ROOM TO DISCUSS DISCHARGE PLANNING AND NEEDS. SURAJ RODRIGUEZ provided verbal consent to discuss current and ongoing needs with/in the presence of: MOTHER, BREEZY. PT REPORTS LIVING AT HOME INDEPENDENTLY WITH HIS MOTHER. PT HAS WALKER AND HOME / PORTABLE OXYGEN FROM [facility]. PT HAS NO OUTSIDE SERVICES ASSISTING IN THE HOME. PT DRIVES SELF TO DIALYSIS IN [place] ON MWF 1030AM SCHEDULE. CM DISCUSSED AVAILABILITY OF HOME HEALTH, REHAB SERVICES AND MEDICAL EQUIPMENT. PT DENIES DISCHARGE NEEDS, REPORTS HIS MOTHER WILL PICK HIM UP FOR DISCHARGE HOME. IMPORTANT MESSAGE FROM MEDICARE PROVIDED AND EXPLAINED. CM ASKED WHAT HAPPENED WITH FILLING DISCHARGE MEDICATION AFTER LAST VISIT. PT REPORTS IT WAS TOO EXPENSIVE. CM ASKED HOW MUCH WAS THE PRESCRIPTION, PT STATES HE SENT HIS MOTHER TO PICK IT UP. PT'S MOTHER STATES SHE DID NOT KNOW, [facility] DID NOT TELL HER HOW MUCH THE PRESCRIPTION WAS. CM EXPLAINED IMPORTANCE OF FILLING AND TAKING ANTIBIOTICS. PT STATES HE HAS NO PRESCRIPTION COVERAGE NOW AND THAT HE HAS FILED FOR AND IS WAITING ON MEDICAID TO ASSIST. CM PROVIDED GOOD RX CARD, INFORMED PT THAT HIS PRESCRIPTION WOULD BE $28.41. PT'S MOTHER THANKED CM FOR THE INFORMATION AND ASSISTANCE. PT'S MOTHER COMPLAINED THAT THE HOSPITAL WOULD NOT PROVIDE HER VOUCHERS TO EAT IN THE [employer] [place]. PTS' MOTHER STATES THAT PATIENT IS HAVING TO TAKE HER TO [place] AND IS HAVING TO BUY HER MEALS THERE. CM EXPLAINED HOSPITAL POLICY AND INFORMED HER THAT NO GUEST TRAYS WOULD BE PROVIDED. PT'S MOTHER REPORTED UNDERSTANDING, DENIES FURHTER NEEDS. PT PLANS TO DISCHARGE HOME WITH MOM, CM PROVIDED GOOD RX CARD TO ASSIST PT WITH GETTING ANY NEEDED PRESCRIPTIONS AT [facility]. PT IS HOPEFUL THAT HIS MEDICAID WILL BE APPROVED SOON AND WILL ASSIST WITH PRESCRIPTION COVERAGE. Chaplain: Donavon Araya DCPIA - Discharge Planning Initial Assessment Updated by [id number]: Donavon Araya on 10/09/19 4:19 pm * Is the patient Alert and Oriented? Yes * How many steps to enter\exit or inside your home? NONE * PCP DR. FAGAN IN [place] * Pharmacy [facility] IN [place] * Preadmission Environment Home with Family * ADLs Independent * Equipment Other Oxygen Wheelchair * Other Equipment LEFT BELOW KNEE PROSTHESIS HOME AND PORTABLE OXGYEN, [facility] * List name and contact numbers for known caregivers / representatives who currently or will assist patient after discharge: BREEZY STRAUSS, MOTHER, * Verbal permission to speak to the caregivers and representatives has been obtained from the patient. Yes * Community resources currently utilized Other * Please name any agencies selected above. [facility], [place], MWF, 1030, DRIVES SELF * Additional services required to return to the preadmission environment? No * Can the patient safely return to the preadmission environment? Yes * Has this patient been hospitalized within the prior 30 days at any hospital? Yes Coverage Notice Reviewer: [id number] - Donavon Araya Notice Issued Date-Time: 10/09/2019 12:55 Notice Type: IM Discharge Notice Notice Delivered To: Patient Relationship to Patient: Congregational Care Pastor Name: Delivery Method: HAND - Hand Delivered Chandrika Days: Prior Verbal Notification: Recipient Understood Notice: Yes Recipient Signature: Yes Med Rec Note Co-signed by Attending: Coverage Notice Comment: Last DP export: 10/09/19 3:22 p Patient Name: SURAJ RODRIGUEZ Page [id number] at 1635 All edits/amendments must be made on the electronic document DICTATION DATE: 10/09/191633 TRIMMING PRESS OPERATOR: LEONORA 10/09/191633 RPT#: [id number] DC DATE: STATUS: ADM IN [facility] [address] [place] [address] END OF REPORT
--- NOTE | 2019-10-09 19:32 | NUR ---
PT UP IN WHEELCHAIR WE SPOKE ABOUT PROCEDURE IN AM PT STATED HE STILL MAY NO DO IT PT ASKED FOR ZOFRAN AND MED GIVEN BED LOW AND LOCKED CALL LIGHT IN REACH
[2019-10-09 20:27] VITALS: BP 159/82
[2019-10-10 00:56] VITALS: BP 164/87
[2019-10-10 05:19] VITALS: BP 173/91
--- NOTE | 2019-10-10 06:36 | NUR ---
SAW ORDER FOR BLOOD BUT PT IS JW AND IS NOT COMPLING WITH BLOOD ORDER
[2019-10-10 06:43] LABS: BASOPHILS 0.5 % (0-2); EOSINOPHILS 8.3 % (0-7); HEMATOCRIT 21.6 % (42.0-54.0); IMMATURE GRANULOCYTES 0.2 % (0-5); LYMPHOCYTES 15.9 % (15-50); MCH 26.8 pg (26.0-34.0); MCHC 31.9 g/dL (31.0-37.0); MEAN PLATELET VOLUME 9.6 fL (7.4-10.4); MONOCYTES 7.7 % (2-11); NEUTROPHILS 67.4 % (40-80); PLATELET COUNT 357 10x3/uL (130-400); RBC 2.57 10x6/uL (4.20-6.10); RDW 18.8 % (11.5-14.5); WBC 8.3 10x3/uL (4.8-10.8)
[2019-10-10 06:53] LABS: HEMOGLOBIN 6.9 g/dL (13.5-17.5)
[2019-10-10 06:58] LABS: ANION GAP 14.7 mmol/L (8-16); CALCIUM 8.3 mg/dL (8.5-10.1); CARBON DIOXIDE 28.8 mmol/L (21.0-32.0); CREATININE - SERUM 13.3 mg/dL (0.6-1.3); POTASSIUM - SERUM 4.5 mmol/L (3.5-5.1)
--- NOTE | 2019-10-10 07:00 | NUR ---
I SPOKE WITH PT AT THIS TIME TO CONFIRM THAT HE DID NOT WANT TO RECIEVE BLOOD PT WAS ADIMENT AFTER I EXPLAIN TH E CRITICAL LEVEL THAT HE WOULD NOT RECIEVE BLOOD
--- NOTE | 2019-10-10 08:45 | NUR ---
PATIENT REFUSED THE NUCLEAR MEDICINE GASTRIC EMPTYING SCAN AGAIN PER WONG. EXAM IS CANCELLED. SPOKE TO ADONIS AND LET HER KNOW THE PATIENT REFUSED YESTERDAY AND AGAIN TODAY.
[2019-10-10 10:38] VITALS: BP 139/73
[2019-10-10] MEDS ORDERED: LEVAQUIN750 MG PO (14:36)
--- NOTE | 2019-10-10 16:07 | NUR ---
UPON ADMIT, PATIENT HAS NOT HAD A FLU SHOT. WHEN QUESTIONED, HE REFUSED ONE FOR DISCHARGE.
--- NOTE | 2019-10-10 16:43 | NUR ---
PT'S DISCHARGE INSTRUCTIONS REVIEWED WITH HIM AND MOTHER. RT IN ROOM LOADING OXYGEN TANK FOR TRANSPORT HOME. IV REMOVED. ANTIBIOTICS WITH PT AND INSTRUCTED HOW TO TAKE.
--- NOTE | 2019-10-10 17:47 | MORECARE ---
CASE MANAGEMENT DISCHARGE SUMMARY PATIENT: SURAJ RODRIGUEZ UNIT: [id number] ADM DATE: 10/07/19 AGE: 44 : 75 SEX: M ROOM/BED: D.2103 AUTHOR: IGLESIA,DOC PHYSICIAN: REFERRING PHYSICIAN: SERG KEN MD DATE OF SERVICE: 10/10/19 Discharge Plan Patient Name: SURAJ RODRIGUEZ Facility: [facility]:[place] : 1975 Planned Disposition: Home Anticipated Discharge Date: 10/10/19 Discharge Date: 10/10/2019 Expected LOS: 3 Initial Reviewer: [id number] Initial Review Date: 10/09/2019 Generated: 10/10/19 6:46 pm Comments DCP- Discharge Planning Updated by [email or web address]: Donavon Aryaa on 10/10/19 4:[address] Patient Name: SURAJ RODRIGUEZ Encounter No: [id number] : 1975 Primary Insurance: MEDICARE A & B Anticipated DC Date: 10-10-2019 Planned Disposition: Home DCP follow-up note: PATIENTS SITUATION WITH LACK OF INSURANCE COVERAGE DISCUSSED IN MULTIDISIPLINARY TEAM MEETING, HOSPITAL CNO ADVISED TO PROVIDE PT MEDICATION FOR DISCHARGE HOME TO ENSURE HE GETS HIS ANTIBIOTIC THIS TIME. CM DIRECTOR NEAL AUTHORIZED. CM CALLED [facility] IN [place], OBTAINED QUOTE FOR LEVAQUIN, 750MG #4, $17.17. MEDICATION CALLED IN. DR. BLAKELY UPDATED AND ADVISED CM TO PERSONLALLY PUT THE MEDICATIONS IN PT'S HAND FOR DISCHARGE. CM ADMINISTRATIVE ASSITANT PICKED UP MEDICATION AND PROVIDED TO CM. CM PROVIDED TO PT. PT AND PT'S MOTHER DENIED FURTHER DISCHARGE NEEDS. DREDGE DECKHAND NURSE NOTIFIED. Donavon Araya, CASE MANAGEMENT DCP- Discharge Planning Updated by [id number]: Donavon Araya on 10/09/19 3:[address] Patient Name: SURAJ RODRIGUEZ Admission Status: ER Accout number: [id number] Admission Date: 10-07-2019 : 1975 Admission Diagnosis: Attending: ALEN Current LOS: 2 Anticipated DC Date: 10-10-2019 Planned Disposition: Home Primary Insurance: MEDICARE A & B Discharge Planning Comments: CM MET WITH PT AND MOTHER IN ROOM TO DISCUSS DISCHARGE PLANNING AND NEEDS. SURAJ RODRIGUEZ provided verbal consent to discuss current and ongoing needs with/in the presence of: MOTHER, BREEZY. PT REPORTS LIVING AT HOME INDEPENDENTLY WITH HIS MOTHER. PT HAS WALKER AND HOME / PORTABLE OXYGEN FROM [facility]. PT HAS NO OUTSIDE SERVICES ASSISTING IN THE HOME. PT DRIVES SELF TO DIALYSIS IN [place] ON MWF 1030AM SCHEDULE. CM DISCUSSED AVAILABILITY OF HOME HEALTH, REHAB SERVICES AND MEDICAL EQUIPMENT. PT DENIES DISCHARGE NEEDS, REPORTS HIS MOTHER WILL PICK HIM UP FOR DISCHARGE HOME. IMPORTANT MESSAGE FROM MEDICARE PROVIDED AND EXPLAINED. CM ASKED WHAT HAPPENED WITH FILLING DISCHARGE MEDICATION AFTER LAST VISIT. PT REPORTS IT WAS TOO EXPENSIVE. CM ASKED HOW MUCH WAS THE PRESCRIPTION, PT STATES HE SENT HIS MOTHER TO PICK IT UP. PT'S MOTHER STATES SHE DID NOT KNOW, [facility] DID NOT TELL HER HOW MUCH THE PRESCRIPTION WAS. CM EXPLAINED IMPORTANCE OF FILLING AND TAKING ANTIBIOTICS. PT STATES HE HAS NO PRESCRIPTION COVERAGE NOW AND THAT HE HAS FILED FOR AND IS WAITING ON MEDICAID TO ASSIST. CM PROVIDED GOOD RX CARD, INFORMED PT THAT HIS PRESCRIPTION WOULD BE $28.41. PT'S MOTHER THANKED CM FOR THE INFORMATION AND ASSISTANCE. PT'S MOTHER COMPLAINED THAT THE HOSPITAL WOULD NOT PROVIDE HER VOUCHERS TO EAT IN THE [employer] [place]. PTS' MOTHER STATES THAT PATIENT IS HAVING TO TAKE HER TO [place] AND IS HAVING TO BUY HER MEALS THERE. CM EXPLAINED HOSPITAL POLICY AND INFORMED HER THAT NO GUEST TRAYS WOULD BE PROVIDED. PT'S MOTHER REPORTED UNDERSTANDING, DENIES FURHTER NEEDS. PT PLANS TO DISCHARGE HOME WITH MOM, CM PROVIDED GOOD RX CARD TO ASSIST PT WITH GETTING ANY NEEDED PRESCRIPTIONS AT [facility]. PT IS HOPEFUL THAT HIS MEDICAID WILL BE APPROVED SOON AND WILL ASSIST WITH PRESCRIPTION COVERAGE. Geomagnetician: Donavon Araya DCA - Discharge Planning Initial Assessment Updated by [id number]: Donavon Araya on 10/09/19 4:19 pm * Is the patient Alert and Oriented? Yes * How many steps to enter\exit or inside your home? NONE * PCP DR. FAGAN IN [place] * Pharmacy [facility] IN [place] * Preadmission Environment Home with Family * ADLs Independent * Equipment Other Oxygen Wheelchair * Other Equipment LEFT BELOW KNEE PROSTHESIS HOME AND PORTABLE OXGYEN, [facility] * List name and contact numbers for known caregivers / representatives who currently or will assist patient after discharge: BREEZY STRAUSS, MOTHER, * Verbal permission to speak to the caregivers and representatives has been obtained from the patient. Yes * Community resources currently utilized Other * Please name any agencies selected above. OUTPATIENT DIALYSIS, [place], [place], 1030, DRIVES SELF * Additional services required to return to the preadmission environment? No * Can the patient safely return to the preadmission environment? Yes * Has this patient been hospitalized within the prior 30 days at any hospital? Yes Coverage Notice Reviewer: [id number] Suhas Araya Notice Issued Date-Time: 10/09/2019 12:55 Notice Type: IM Discharge Notice Notice Delivered To: Patient Relationship to Patient: Bonsai Tender Name: Delivery Method: HAND - Hand Delivered Chandrika Days: Prior Verbal Notification: Recipient Understood Notice: Yes Recipient Signature: Yes Med Rec Note Co-signed by Attending: Coverage Notice Comment: Last DP export: 10/09/19 3:35 p Patient Name: SURAJ RODRIGUEZ Page [id number] at 1747 All edits/amendments must be made on the electronic document DICTATION DATE: 10/10/191745 CORRECTIVE THERAPY AIDE TEACHER: LEONORA 10/10/191745 RPT#: [id number] DC DATE:10/10/19 STATUS: DIS IN [facility] [address] [place] [address] END OF REPORT
== END 2019-10-10 17:27 | disposition home or self-care (01) | DRG 682 ==
LOC: D.ER 15:35 → D.M2 17:34
PROVIDERS: Emergency Medicine; Internal Medicine Nephrology; ADMIT Family Medicine; ATTEND Family Medicine
PROC: 5A1D70Z Performance of Urinary Filtration, Intermittent, Less than 6 Hours Per Day (ICD-10-PCS; principal; 2019-10-08)
DX: I12.0 Hypertensive chronic kidney disease with stage 5 chronic kidney disease or end stage renal disease (principal); J18.9 Pneumonia, unspecified organism; J96.01 Acute respiratory failure with hypoxia; N18.6 End stage renal disease; I50.43 Acute on chronic combined systolic (congestive) and diastolic (congestive) heart failure; E11.22 Type 2 diabetes mellitus with diabetic chronic kidney disease; Z99.2 Dependence on renal dialysis; Z91.19 Patient's noncompliance with other medical treatment and regimen; E11.40 Type 2 diabetes mellitus with diabetic neuropathy, unspecified; D63.1 Anemia in chronic kidney disease

== ENCOUNTER 2021-03-03 09:45 | Observation (INO) | payer MEDICARE ==
[~2021-03-03] VITALS: Ht 188 cm; Wt 97.7 kg
[~2021-03-03 09:45] MED LIST changes: +BENADRYL25 MG PO; +FUROSEMIDE20 MG PO; +HYDROCODON-ACE1 EAC2 PO; +LEVAQUIN750 MG PO; -PROCARDIA XL30 MG PO; +PROCARDIA XL60 MG PO; +REGLAN10 MG PO; +RENVELA800 MG PO; -SENSIPAR30 MG; +SENSIPAR30 MG PO; +ZOFRAN4 MG PO
[2021-03-03 09:49] VITALS: Ht 188 cm; Wt 97.7 kg
[2021-03-03 10:24] LABS: BASOPHILS 0.9 % (0-2); HEMATOCRIT 36.8 % (42.0-54.0); LYMPHOCYTES 16.5 % (15-50); MCH 31.1 pg (26.0-34.0); MCHC 32.6 g/dL (31.0-37.0); MCV 95.5 fL (80.0-100.0); MEAN PLATELET VOLUME 9.1 fL (7.4-10.4); MONOCYTES 10.5 % (2-11); NEUTROPHILS 62.1 % (40-80); PLATELET COUNT 275 10x3/uL (130-400); RBC 3.86 10x6/uL (4.20-6.10); RDW 16.6 % (11.5-14.5); WBC 9.2 10x3/uL (4.8-10.8)
[2021-03-03 10:27] VITALS: BP 150/86
[2021-03-03 10:28] LABS: CALC OSMOLALITY 287 mosm/kg (275-300); CALCIUM 9.4 mg/dL (8.5-10.1); CARBON DIOXIDE 26.7 mmol/L (21.0-32.0); CHLORIDE - SERUM 95 mmol/L (98-107); CREATININE - SERUM 15.8 mg/dL (0.6-1.3); GLUCOSE 227 mg/dL (74-106); SODIUM 134 mmol/L (136-145); UREA NITROGEN 50 mg/dL (7-18); eGFR NON AFRICAN AMERICAN 4 mL/min (90-120)
[2021-03-03 10:29] LABS: APTT 30.1 SECONDS (22.8-39.4); INR 1.16 (0.85-1.17); PROTIME 13.7 SECONDS (11.6-15.0)
[2021-03-03 10:50] LABS: ALBUMIN 3.1 g/dL (3.4-5.0); ALKALINE PHOSPHATASE 81 U/L (30-120); ALT (SGPT) 14 U/L (10-68); BILIRUBIN - TOTAL 0.28 mg/dL (0.2-1.3); CKMB 2.8 U/L (0.0-3.6); CREATINE KINASE 99 UL (21-232); MAGNESIUM - SERUM 2.2 mg/dL (1.8-2.4); PROTEIN - SERUM 9.1 g/dL (6.4-8.2)
[2021-03-03 10:57] LABS: TROPONIN-I 0.395 ng/mL (0.000-0.060)
--- NOTE | 2021-03-03 19:13 | NUR ---
REPORT RECEIVED FROM ADRIAN EUGENE.
--- NOTE | 2021-03-03 19:39 | NUR ---
MOTHER AT BEDSIDE, UPDATED HER ON PLAN FOR CARDIOLOGY TO DISCHARGE AND SHAR DAVIS TO DISCHARGE FOLLOWING. FAMILY AND PT VOICED UNDERSTANDING.
[2021-03-03 20:12] VITALS: BP 166/88
--- NOTE | 2021-03-03 20:12 | NUR ---
PT AND FAMILY ASKING FOR DISCHARGE INSTRUCTIONS, EXPLAINED THAT UNABLE TO PROVIDE D/T DISCHARGE NOT ORDERED AT THIS TIME. EXPLAINED AMA FORM TO PT AND FAMILY. PT SIGNED, LAW ROJAS APRN NOTIFIED.
== END 2021-03-03 21:00 | disposition left against medical advice (07) ==
LOC: D.ER 09:45 → D.EDHOLD 19:11 → OBSVTIME 19:12 → D.EDHOLD 21:00
PROVIDERS: Family Medicine; ADMIT Emergency Medicine; ATTEND Emergency Medicine
DX: R07.9 Chest pain, unspecified (principal); E11.65 Type 2 diabetes mellitus with hyperglycemia; N18.6 End stage renal disease; I50.9 Heart failure, unspecified; E11.22 Type 2 diabetes mellitus with diabetic chronic kidney disease; I13.2 Hypertensive heart and chronic kidney disease with heart failure and with stage 5 chronic kidney disease, or end stage renal disease; E78.5 Hyperlipidemia, unspecified